=== PATIENT | female | born 1995 | race Caucasian/White ===

== ENCOUNTER 2020-11-21 14:14 | Emergency (ER) | payer OTHER, BC ==
[2020-11-21] MEDS ORDERED: ACETAMINOPHEN 325 MG TABLET PO ONE (14:51)
[2020-11-21] MEDS ORDERED: NORMAL SALINE 1000 ML 1,000 ML IV ONE ×2 (14:51→18:19)
[2020-11-21] MEDS ORDERED: ONDANSETRON HCL INJ/PF 4 MG/2 ML SDV IV ONE (14:51)
--- NOTE | 2020-11-21 14:54 | ER Document Report ---
ED Medical Screen (RME) - General Chief Complaint: Nausea/Vomiting/Diarrhea Stated Complaint: COUGH,CONGESTION,VOMITING,FEVER Time Seen by Provider: 11/21/20 14:44 Notes: Patient is a 25-year-old female presents emergency department with a chief complaint of nausea, vomiting, and diarrhea. States that she also has a cough and congestion. She does not have she has had any contact with anyone who tested positive for COVID-19. Exam: Heart rate 140. Temperature 101. I have greeted and performed a rapid initial assessment of this patient. A comprehensive ED assessment and evaluation of the patient, analysis of test results and completion of medical decision making process will be conducted by an additional ED providers. Physical Exam - Vital signs Vitals: Temp Pulse Resp BP Pulse Ox 101.0 F H 140 H 20 146/112 H 96 11/21/20 14:24 11/21/20 14:24 11/21/20 14:24 11/21/20 14:24 11/21/20 14:24 Course - Vital Signs Vital signs: Temp Pulse Resp BP Pulse Ox 101.0 F H 140 H 20 146/112 H 96 11/21/20 14:24 11/21/20 14:24 11/21/20 14:24 11/21/20 14:24 11/21/20 14:24
--- NOTE | 2020-11-21 16:14 | ER Document Report ---
ED General - General Chief Complaint: Nausea/Vomiting/Diarrhea Stated Complaint: COUGH,CONGESTION,VOMITING,FEVER Time Seen by Provider: 11/21/20 14:44 Primary Care Provider: KIRIT PONCE MD [COMMUNITY BASED STAFF] - Follow up in 3-5 days - [facility] Notes: Patient is a 25-year-old female with no significant past medical history who presents with headaches, body aches, nasal congestion, cough, nausea, vomiting. Patient states symptoms have been present for about 1 week. She tested negative for Covid in the beginning of the month and has not been tested since. She states she has had fevers up to 101 Fahrenheit at home. She has been taking DayQuil and NyQuil but it does not seem to improve her fever much. She denies any chest pain. She states she has a dry cough. She has been unable to tolera te p.o. due to the nausea and vomiting. No abdominal pain. She has had diarrhea. Has never had any abdominal surgeries. She is not on any medication. - Related Data Allergies/Adverse Reactions: coconut Allergy (Verified 11/21/20 19:16) Past Medical History - General Information source: Patient - Social History Smoking Status: Current Every Day Smoker Family History: Reviewed & Not Pertinent Review of Systems - Review of Systems Notes: CONSTITUTIONAL: Positive for fever. SKIN: No rash. HENT: Positive for sore throat and congestion. EYES: No recent vision problems or eye pain. CARDIOVASCULAR: No chest pain or edema. RESPIRATORY: Positive for cough. GASTROINTESTINAL: No abdominal pain. Positive for nausea, vomiting, diarrhea. GENITOURINARY: No dysuria. MUSCULOSKELETAL: No joint pain or swelling. LYMPHATIC: No swollen glands. NEUROLOGIC: No seizures. No focal weakness or sensory changes. Positive for headaches. HEMATOLOGIC: No unusual bruising or bleeding. PSYCHIATRIC: No depression or anxiety. Physical Exam - Vital signs Vitals: Temp Pulse Resp BP Pulse Ox 101.0 F H 140 H 20 146/112 H 96 11/21/20 14:24 11/21/20 14:24 11/21/20 14:24 11/21/20 14:24 11/21/20 14:24 - General General appearance: Appears well In distress: None Notes: VITAL SIGNS: Tachycardic, febrile. GENERAL: No acute distress, non-toxic appearance. HEAD: Normal with no signs of head trauma. EYES: Conjunctiva normal, no discharge. EARS: Hearing grossly intact. NOSE: Normal. NECK: Normal range of motion, supple. No meningismus. CHEST: Clear breath sounds bilaterally. No wheezes, rales, or rhonchi. CARDIAC: Regular rate and rhythm. S1 and S2, without murmurs, gallops, or rubs. VASCULAR: No Edema. ABDOMEN: Normal and soft with no tenderness. GENITOURINARY: Normal, No tenderness LYMPATHTIC: No lymphadenopathy noted. MUSCULOSKELETAL: Good range of motion of all major joints. Extremities without clubbing, cyanosis or edema. NEUROLOGICAL: Alert and oriented x 3. No focal sensory or strength deficits. Speech normal. Follows commands appropriately. PSYCHIATRIC: Normal Affect, judgement and mood. SKIN: Normal appearance with no rashes or lesions. Course - Re-evaluation Re-evalutation: 11/21/20 16:36 Patient appears well on exam. She does appear dehydrated. She will be given fluids and nausea medicine. Work-up will be obtained as above. She will be tested for Covid. Patient is improved after fluids, pain medicine, nausea medicine. Her for influenza is negative. She does have some contaminants in her urine but she states that she has no urinary symptoms. I do not believe she requires antibiotics at this time. I am suspecting that she could have Covid. Patient is on room air and breathing easy. Her heart rate has improved to normal. Her fever has resolved. She is texting on her phone on reassessment. I discussed all results with the patient. I told her that she must self isolate until she is called with a negative result. Patient will be sent home with Tracie hatch Tessalon Perles. She was given strict return precautions. Patient verbalized understanding. 11/22/20 01:18 - Vital Signs Vital signs: Temp Pulse Resp BP Pulse Ox 98.3 F 140 H 21 H 127/94 H 100 11/21/20 22:06 11/21/20 14:24 11/21/20 22:06 11/21/20 22:06 11/21/20 22:06 - Laboratory Results Result Diagrams: 11/21/20 17:10 11/21/20 17:10 Laboratory Results Interpreted: 11/21/20 11/21/20 16:40 17:10 AST 46 H ALT 74 H Urine Protein 100 H Leukocyte Esterase Rfl TRACE H Critical Laboratory Results Reviewed: No Critical Results - Radiology Results Critical Radiology Results Reviewed: No Critical Results - EKG Interpretation by Me EKG shows normal: Sinus rhythm Rate: Tachycardia Rhythm: NSR When compared to previous EKG there are: Previous EKG unavailable Additional EKG results interpreted by me: 11/21/20 16:14 Sinus tachycardia rate of 107. QTc 401. No acute ST changes. No previous EKG available for comparison. Discharge - Discharge Clinical Impression: Cough, Suspected COVID-19 virus infection Fever Qualifiers: Fever type: unspecified Qualified Code(s): R50.9 - Fever, unspecified Nausea and vomiting Qualifiers: Vomiting type: unspecified Vomiting Intractability: non-intractable Qualified Code(s): R11.2 - Nausea with vomiting, unspecified Condition: Stable Disposition: HOME, SELF-CARE Instructions: COVID-19 Guidance for Persons Under Investigation Additional Instructions: Your work-up today is reassuring. You were tested for COVID-19. You must self isolate until you are called with a negative result. You can take a mul tivitamin. Make sure you are staying hydrated. Return to the ER immediately for any worsening symptoms, shortness of breath, fevers. Prescriptions: Benzonatate [Tessalon Perles 100 mg Capsule] 100 mg PO Q8HP PRN #15 capsule PRN Reason: Doxycycline Hyclate [Vibramycin] 100 mg PO BID 7 Days #14 capsule Ondansetron [Zofran Odt 4 mg Tablet] 4 mg PO Q6H PRN 7 Days #10 tab.rapdis PRN Reason: Referrals: KIRIT PONCE MD [COMMUNITY BASED STAFF] - Follow up in 3-5 days
--- NOTE | 2020-11-21 17:03 | RADIOLOGY REPORT (SQ) ---
EXAM DESCRIPTION: CHEST SINGLE VIEW IMAGES COMPLETED DATE/TIME: 11/21/2020 4:52 pm REASON FOR STUDY: cough COMPARISON: None. EXAM PARAMETERS: NUMBER OF VIEWS: One view. TECHNIQUE: Single frontal radiographic view of the chest acquired. RADIATION DOSE: NA LIMITATIONS: None. FINDINGS: LUNGS AND PLEURA: No opacities, masses or pneumothorax. No pleural effusion. MEDIASTINUM AND HILAR STRUCTURES: No masses. Contour normal. HEART AND VASCULAR STRUCTURES: Heart normal in size. Normal vasculature. BONES: No acute findings. HARDWARE: None in the chest. OTHER: No other significant finding. IMPRESSION: NO ACUTE RADIOGRAPHIC FINDING IN THE CHEST. TECHNICAL DOCUMENTATION: JOB ID: [id number] 2010 [employer]- All Rights Reserved Reading location - IP/workstation name: [email or web address]
[2020-11-21 17:40] LABS: ABSOLUTE LYMPHOCYTES (AUTO) 0.9 10^3/uL (0.5-4.7); ABSOLUTE MONOCYTES (AUTO) 0.4 10^3/uL (0.1-1.4); ABSOLUTE NEUT (AUTO) 2.9 10^3/uL (1.7-8.2); LYMPHOCYTES % (AUTO) 20.8 % (13-45); TOTAL CELLS COUNTED % (AUTO) 100 %; WHITE BLOOD COUNT 4.3 10^3/uL (4.0-10.5)
[2020-11-21 17:49] LABS: BASOPHILS % (AUTO) 0.2 % (0-2); EOSINOPHILS % (AUTO) 0.1 % (0-6); HEMATOCRIT 43.7 % (36.0-47.0); HEMOGLOBIN 14.8 g/dL (12.0-15.5); MEAN CORPUSCULAR HEMOGLOBIN 29.5 pg (27.0-33.4); MEAN CORPUSCULAR HGB CONC 33.8 g/dL (32.0-36.0); MEAN CORPUSCULAR VOLUME 87 fl (80-97); MONOCYTES % (AUTO) 10.4 % (3-13); PLATELET COUNT 243 10^3/uL (150-450); RED BLOOD COUNT 5.01 10^6/uL (3.72-5.28); RED CELL DISTRIBUTION WIDTH 12.8 % (11.5-14.0); SEGMENTED NEUTROPHILS % (AUTO) 68.5 % (42-78)
[2020-11-21 17:54] LABS: AMORPHOUS SEDIMENT,URINE TRACE /HPF; APPEARANCE,URINE TURBID; BILIRUBIN,URINE NEGATIVE (NEGATIVE); COLOR,URINE AMBER; GLUCOSE, URINE NEGATIVE (NEGATIVE); KETONES,URINE NEGATIVE (NEGATIVE); PROTEIN,URINE 100 mg/dL (NEGATIVE); URINE SPECIFIC GRAVITY 1.033; UROBILINOGEN,URINE NEGATIVE mg/dL (<2.0)
[2020-11-21 18:00] LABS: ALBUMIN 4.5 g/dL (3.5-5.0); ALKALINE PHOSPHATASE 99 U/L (38-126); ANION GAP 10 (5-19); ASPARTATE AMINO TRANSFERASE 46 U/L (14-36); BILIRUBIN,DIRECT 0.3 mg/dL (0.0-0.4); BILIRUBIN,TOTAL 0.4 mg/dL (0.2-1.3); BLOOD UREA NITROGEN 13 mg/dL (7-20); CALCIUM 8.8 mg/dL (8.4-10.2); CARBON DIOXIDE 24 mmol/L (22-30); CHLORIDE 106 mmol/L (98-107); GLUCOSE 92 mg/dL (75-110); TOTAL PROTEIN 7.9 g/dL (6.3-8.2)
[2020-11-21] MEDS ORDERED: ACETAMINOPHEN 325 MG TABLET ONE (19:00)
[2020-11-21] MEDS ORDERED: ONDANSETRON HCL INJ/PF 4 MG/2 ML SDV ONE (19:00)
[2020-11-21] MEDS ORDERED: KETOROLAC TROMETHAMINE INJ/PF 30 MG/1 ML SDV IV ONE (20:07)
[2020-11-21 20:13] LABS: A TYPE INFLUENZA AG NEGATIVE (NEGATIVE); B INFLUENZA AG NEGATIVE (NEGATIVE)
--- NOTE | 2020-11-21 21:22 | EKG REPORT ---
SEVERITY:- ABNORMAL ECG - SINUS TACHYCARDIA NONSPECIFIC ANTERIOR T INVERSIONS : Confirmed by: Dionte Cary MD 21-Nov-2020 21:22:23
[2020-11-21] MEDS ORDERED: DOXYCYCLINE HYCLATE 100 MG TABLET PO ONE (21:45)
[2020-11-21 22:15] VITALS: BP 127/94
== END 2020-11-21 22:27 | disposition home or self-care (01) ==
LOC: ER 14:14
DX: U07.1 COVID-19 (principal); R51.9 Headache, unspecified; R09.81 Nasal congestion; R05 Cough; R11.2 Nausea with vomiting, unspecified; R19.7 Diarrhea, unspecified; R50.9 Fever, unspecified; R00.0 Tachycardia, unspecified; F17.200 Nicotine dependence, unspecified, uncomplicated; Z91.018 Allergy to other foods
CPT/HCPCS: 93005; 99285; 96361; 96374; 96375; 36415; 87086; 84703; 85025; 87635; 80053; 81001; 87804; 71045; 93010; J1885; J2405; J7030; C9803